=== PATIENT | male | born 1955 | race Caucasian/White ===

== ENCOUNTER 2020-02-11 22:26 | Observation (INO) ==
[2020-02-11 23:41] LABS: ABS Eosinophils 0.4 10^3/ul (0-0.6); ABS Lymphocytes 1.5 10^3/ul (1.0-4.8); ABS Monocytes 0.6 10^3/ul (0-0.8); ABS Neutrophils 4.1 10^3/ul (1.5-7.7); Eosinophil % 5.9 %; Hematocrit 44 % (42-52); Hemoglobin 15.2 g/dL (14.0-18.0); Lymphocyte % 22.5 %; Mean Corpuscular HGB Conc 35 g/dL (31-36); Mean Corpuscular Hemoglobin 31 pg (27-31); Mean Corpuscular Volume 89 fL (80-94); Mean Platelet Volume 8.5 fL (7.4-10.4); Platelet Count 143 10^3/uL (150-450); Red Blood Count 4.94 10^6 /uL (4.18-5.48); Red Cell Distribution Width 13 % (10-15); White Blood Count 6.6 10^3/uL (3.5-10.8)
[2020-02-12 00:15] LABS: ALT 18 U/L (7-52); AST 27 U/L (13-39); Albumin/Globulin Ratio 1.7 (1-3); Alkaline Phosphatase 60 U/L (34-104); Anion Gap 4 mmol/L (2-11); BUN/Creatinine Ratio 26.7 (8-20); Blood Urea Nitrogen 28 mg/dL (6-24); C Reactive Protein 1.93 mg/L (<8.01); CO2 Carbon Dioxide 28 mmol/L (22-32); Calcium 9.4 mg/dL (8.6-10.3); Chloride 104 mmol/L (101-111); EGFR African American 85.5 (>60); EGFR Non-African American 70.7 (>60); Globulin 2.3 g/dL (2-4); Glucose 93 mg/dL (70-100); Potassium 4.3 mmol/L (3.5-5.0); Sodium 136 mmol/L (135-145); Total Protein 6.3 g/dL (6.4-8.9)
[2020-02-12 00:29] LABS: TSH Ultra Thyroid Stim Horm 6.05 mcIU/mL (0.34-5.60)
[2020-02-12 00:30] LABS: Troponin I 0.03 ng/mL (<0.03)
[2020-02-12] MEDS ORDERED: Ondansetron 4 mg VIAL 2 MG/ML 2 ml VIAL IV PRN (01:38)
[2020-02-12 05:39] LABS: Magnesium 2.3 mg/dL (1.9-2.7)
[2020-02-12 05:59] LABS: Free T4 0.92 ng/dL (0.61-1.12)
[2020-02-12 06:22] LABS: Troponin I 0.01 ng/mL (<0.03)
[2020-02-12] MEDS ORDERED: Perflutren Lipid Microsphere 3 ML VIAL ONE (08:26)
[2020-02-12 08:28] LABS: C Reactive Protein 2.01 mg/L (<8.01)
[2020-02-12 14:35] VITALS: BP 132/66
== END 2020-02-12 13:02 | disposition short-term general hospital (02) ==
LOC: MEDTELE 22:26 → ED 22:26 → MEDTELE 02-12 05:19
PROVIDERS: ADMIT Internal Medicine; ATTEND Internal Medicine